=== PATIENT | female | born 1985 | race Caucasian/White ===

== ENCOUNTER 2017-01-22 10:04 | Emergency (ER) | payer MEDICAID ==
[2017-01-22 11:46] LABS: Bilirubin,Urine NEG (Negative); Blood,Urine SM (Negative); Ketones,Urine NEG (Negative); Leukocyte Esterase,Urine NEG (Negative); Mucus,Urine FEW /HPF; Nitrite,Urine NEG (Negative); Protein,Urine <15 mg/dL mg/dL (Negative); Urobilinogen,Urine < 2.0 mg/dL (<2.0)
--- NOTE | 2017-01-22 12:43 | Emergency Department Report ---
ED Female HPI - General Chief complaint: Urogenital-Female Stated complaint: ABD PAIN Time Seen by Provider: 01/22/17 12:05 Source: patient Mode of arrival: Ambulatory Limitations: No Limitations - History of Present Illness Initial comments: Patient complain in this she has painful on the inside of her labia on the left side. She is complaining of right vaginal discharge 2 weeks which she reported. Denies any redness to vaginal area. Denies any vaginal bleeding, back pain or abdominal pain. No urinary burning and frequency urgency. Denies any nausea or vomiting. She states the recovery rn that she came to the emergency room because this started a couple days ago and she could not get in with [employer]. She denies any fever or chills. She has polycystic ovary. Patient reports this is not concerned for STD. She says she had sexual encounter with her about a month ago but they're going through a divorce. MD Complaint: vaginal discharge, other (painful cyst to the vaginal area) Onset/Timin -: week(s) Location: labia Radiation: non-radiating Severity: mild Severity scale (0 -10): 2 Quality: dull Consistency: intermittent Improves with: none Worsens with: none Are you Now?: No Associated Symptoms: vaginal discharge. denies: vaginal bleeding, abdominal pain, nausea/vomiting, fever/chills, headaches, loss of appetite, dysuria, hematuria, rash, seizure, shortness of breath, syncope, weakness - Related Data Sexually active: Yes Previous Rx's Medication Instructions Recorded Last Taken Type Cephalexin [Keflex] 500 mg PO Q8HR #30 cap 01/22/17 Unknown Rx metroNIDAZOLE [Flagyl] 500 mg PO Q12HR #14 tab 01/22/17 Unknown Rx Allergies Allergy/AdvReac Type Severity Reaction Status Date / Time No Known Allergies Allergy Verified 01/22/17 10:28 ED Review of Systems ROS: Stated complaint: ABD PAIN Other details as noted in HPI Comment: All other systems reviewed and negative Constitutional: denies: chills, fever ENT: denies: throat pain Respiratory: no symptoms reported Cardiovascular: denies: chest pain, palpitations, edema, syncope Gastrointestinal: denies: abdominal pain, nausea, vomiting, diarrhea, constipation Genitourinary: discharge, other (painful left vaginal area). denies: urgency, dysuria, frequency, hematuria, abnormal menses, dyspareunia Musculoskeletal: denies: back pain, arthralgia Skin: denies: rash Neurological: denies: headache, weakness, abnormal gait, vertigo ED Past Medical Hx - Past Medical History Previous Medical History?: Yes Additional medical history: Polycycstic OVarian Disease - Surgical History Past Surgical History?: No - Family History Family history: hypertension - Social History Smoking Status: Current Every Day Smoker Substance Use Type: Alcohol - Medications Home Medications: Home Medications Medication Instructions Recorded Confirmed Last Taken Type Cephalexin [Keflex] 500 mg PO Q8HR #30 cap 01/22/17 Unknown Rx metroNIDAZOLE [Flagyl] 500 mg PO Q12HR #14 tab 01/22/17 Unknown Rx ED Physical Exam - General Limitations: No Limitations General appearance: alert, in no apparent distress - Head Head exam: Present: atraumatic, normocephalic, normal inspection - Eye Eye exam: Present: normal appearance, PERRL, EOMI. Absent: scleral icterus, conjunctival injection, periorbital swelling, periorbital tenderness Pupils: Present: normal accommodation - ENT ENT exam: Present: normal exam, normal orophraynx, mucous membranes moist - Neck Neck exam: Present: normal inspection, full ROM. Absent: tenderness, meningismus, lymphadenopathy - Respiratory Respiratory exam: Present: normal lung sounds bilaterally. Absent: respiratory distress, chest wall tenderness - Cardiovascular Cardiovascular Exam: Present: regular rate, normal rhythm, normal heart sounds - GI/Abdominal GI/Abdominal exam: Present: soft, normal bowel sounds. Absent: distended, tenderness, guarding, rebound, rigid - External exam: Present: swelling (mild swelling to the labia majora. No erythema or tenderness to palpate positive induration without any fluctuance. No drainage noted.). Absent: lesions, lacerations, ecchymosis, bleeding Speculum exam: Present: vaginal discharge, cervical discharge. Absent: erythema , vaginal bleeding, foreign body, tissue, laceration Bi-manual exam: Present: normal bi-manual exam - Extremities Exam Extremities exam: Present: normal inspection, full ROM, normal capillary refill. Absent: tenderness, pedal edema, joint swelling, calf tenderness - Back Exam Back exam: Present: normal inspection, full ROM. Absent: tenderness, CVA tenderness (R), CVA tenderness (L), muscle spasm, paraspinal tenderness, vertebral tenderness, rash noted - Neurological Exam Neurological exam: Present: alert, oriented X3, normal gait. Absent: motor sensory deficit, reflexes normal - Psychiatric Psychiatric exam: Present: normal affect, normal mood - Skin Skin exam: Present: warm, dry, intact, normal color. Absent: rash ED Course Vital Signs 01/22/17 10:21 Temperature 97.8 F Pulse Rate 93 H Respiratory 18 Rate Blood Pressure 144/98 O2 Sat by Pulse 100 Oximetry - Reevaluation(s) Reevaluation #1: 01/22/17 14:21 She is stable throughout ED stay ED Medical Decision Making - Lab Data Lab Results 01/22/17 Range/Units 10:21 Urine Color Yellow (Yellow) Urine Turbidity Clear (Clear) Urine pH 6.0 (5.0-7.0) Ur Specific [place] 1.029 (1.003-1.030) Urine Protein <15 mg/dl (Negative) mg/dL Urine Glucose (UA) Neg (Negative) mg/dL Urine Ketones Neg (Negative) mg/dL Urine Blood Sm (Negative) Urine Nitrite Neg (Negative) Urine Bilirubin Neg (Negative) Urine Urobilinogen < 2.0 (<2.0) mg/dL Ur Leukocyte Esterase Neg (Negative) Urine WBC (Auto) 2.0 (0.0-6.0) /HPF Urine RBC (Auto) 4.0 (0.0-6.0) /HPF U Epithel Cells (Auto) 7.0 (0-13.0) /HPF Urine Mucus Few /HPF Urine HCG, Qual Negative (Negative) Greater than 20%, no trichomonas or yeast. GC and chlamydia is pending. - Medical Decision Making ED course: Patient here complaining of left vaginal area and vaginal discharge. Analysis negative for bacterial infection, test is negative. Wet prep positive for bacterial vaginosis and negative for Trichomonas and yeast. Gonorrhea Chlamydia test is pending. Test results given to patient with explanation and sutures until gonorrhea and chlamydia test comes back and she said this is positive then she'll be treated. Patient also with prominent left labia majora but not erythema and nontender to palpate. I explained to her history of [employer] and she will need to schedule appointment today for follow-up visit. I also discussed with the treatment plan. She discharged home with prescription for size to treat bacterial vaginosis and Keflex this area to labia majora suspected to be cysts. Positive induration and no fluctuance. Critical care attestation.: If time is entered above; I have spent that time in minutes in the direct care of this critically ill patient, excluding procedure time. ED Disposition Clinical Impression: Labial swelling, Bacterial vaginitis, Vaginal discharge Disposition: TO HOME OR SELFCARE Is pt being admited?: No Does the pt Need Aspirin: No Condition: Stable Instructions: Bacterial Vaginosis (ED), Bartholin Cyst (ED), Safe Sex (ED), Sexually Transmitted Diseases (ED) Additional Instructions: Your test that was collected today for gonorrhea and chlamydia is still pending so please return to medical records 4 times a day next Thursday to get medical records. His cardiac [employer] and schedule an appointment for follow-up visits in 4 days. Take Medication as prescribed. Prescriptions: Cephalexin [Keflex] 500 mg PO Q8HR #30 cap metroNIDAZOLE [Flagyl] 500 mg PO Q12HR #14 tab Referrals: Your, [employer] [Other] - 01/26/17 Forms: STI Treatment and Prevention, Work/School Release Form(ED)
[2017-01-22 14:38] VITALS: BP 130/84
== END 2017-01-22 14:38 | disposition home or self-care (01) ==
LOC: ED 10:04
DX: N76.0 Acute vaginitis (principal); B96.89 Other specified bacterial agents as the cause of diseases classified elsewhere; N90.89 Other specified noninflammatory disorders of vulva and perineum; F17.200 Nicotine dependence, unspecified, uncomplicated
CPT/HCPCS: 81001; 81025; 87210; 87591; 99284